=== PATIENT | female | born 1995 | race Caucasian/White ===

== ENCOUNTER 2017-11-10 22:05 | Emergency (ER) | payer OTHER ==
[~2017-11-10] VITALS: Ht 170.2 cm; Wt 56.7 kg
--- NOTE | ~2017-11-10 | OP ---
[address] [address] OPERATIVE REPORT Name: BARRINGTON CHIU Room: [facility]#: [id number] Admission: 11/10/17 Attend Phys: Discharge: 11/11/17 Date of : [birth year] Report #: [id number] THIS REPORT FOR: //name// Please see the post operative note. By: 0651Medical Records Staff WAQAR /CHITO
[~2017-11-10 22:05] MED LIST: ACETAMINOPHEN-1 EAC1 PO; CEPHALEXIN 500500 M3 PO; CIPROFLOXIN HC2.5 M1 OTIC
[2017-11-10 22:44] LABS: ABSOLUTE EOSINOPHILS 0.2 thou/uL (0.0-0.7); ABSOLUTE LYMPHOCYTES 4.2 thou/uL (0.8-5.3); ABSOLUTE MONOCYTES 0.5 thou/uL (0.0-1.2); BASOPHILS 0.4 %; EOSINOPHILS 1.6 %; HEMATOCRIT 29.6 % (37.0-47.0); LYMPHOCYTES 42.3 %; MCHC 33.8 g/dL (28.0-37.0); MCV 85.7 fL (80.0-100.0); MONOCYTES 5.5 %; MPV 7.4 fl. (7.2-11.1); NUCLEATED RBCS 0 /100WBC; PLATELET COUNT* 286 thou/uL (150-400); POLYS 50.2 %; RBC 3.45 mil/uL (4.20-5.00); RDW-CV 13.7 % (10.5-14.5); WBC 9.9 thou/uL (4.0-11.0)
[2017-11-10 22:51] LABS: CALCIUM 8.8 mg/dL (8.5-10.1); CREATININE 0.9 mg/dL (0.6-1.3); POTASSIUM 3.5 mmol/L (3.5-5.1)
[2017-11-10 22:53] LABS: INR 1.1; PROTIME 10.7 Seconds (9.20-11.50)
[2017-11-10 22:56] LABS: ALBUMIN 3.8 g/dL (3.4-5.0); TOTAL BILIRUBIN 0.3 mg/dL (<0.1-1.0)
[2017-11-11 01:47] LABS: URINE BILIRUBIN NEGATIVE (Negative); URINE BLOOD 3+ (Negative); URINE CLARITY SL CLOUDY; URINE COLOR RED; URINE GLUCOSE-RANDOM NEGATIVE (Negative); URINE KETONES NEGATIVE (Negative); URINE LEUKOCYTES NEGATIVE (Negative); URINE NITRITE NEGATIVE (Negative); URINE PROTEIN TRACE (Negative); URINE SPECIFIC GRAVITY 1.015 (1.005-1.030); URINE UROBILINOGEN 0.2 E.U./dl (0.2-1.0)
[2017-11-11 01:49] LABS: BACTERIA 1-9 Few /HPF (None Seen); CASTS None Seen /LPF (None Seen); CRYSTALS None Seen /LPF (None Seen); MUCUS 0-3 Light strn/LPF (None Seen); SQUAMOUS 0-3 Few /LPF (0-3); URINE RBC >20 Many /HPF (0-2); URINE WBC 0-5 Rare /HPF (0-5)
[2017-11-11 04:07] LABS: ABSOLUTE EOSINOPHILS 0.1 thou/uL (0.0-0.7); ABSOLUTE LYMPHOCYTES 2.9 thou/uL (0.8-5.3); ABSOLUTE MONOCYTES 0.5 thou/uL (0.0-1.2); ABSOLUTE NEUTROPHILS 4.4 thou/uL (1.6-8.1); BASOPHILS 0.5 %; EOSINOPHILS 1.8 %; HEMATOCRIT 25.2 % (37.0-47.0); HEMOGLOBIN 8.5 gm/dL (12.0-15.0); MCH 29.1 pg (26.0-34.0); MCHC 33.8 g/dL (28.0-37.0); MONOCYTES 6.6 %; MPV 7.2 fl. (7.2-11.1); NUCLEATED RBCS 0 /100WBC; PLATELET COUNT* 242 thou/uL (150-400); POLYS 55.1 %; RBC 2.94 mil/uL (4.20-5.00); RDW-CV 13.9 % (10.5-14.5)
[2017-11-11 04:46] VITALS: BP 102/49
--- NOTE | 2017-11-11 16:37 | EKG ---
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
--- NOTE | 2017-11-14 11:28 | S ---
[address] [address] SURGICAL PATH RPT PROCEDURE Name: BARRINGTON VALDOVINOS Room: [facility].#: [id number] Admission: 11/10/17 Date of : [birth year] Discharge: 11/11/17 Report #: [id number] Path Case #: [id number] PATHOLOGY REPORT COLLECTION DATE: 11/11/2017 RECEIVED DATE: 11/13/2017 SUBMITTING PHYS: Dr. Akhil Horn OTHER PHYS: Dr. Adilene Mcqueen SPECIMEN(S) RECEIVED: A.Products of conception * * * * * * * * * * * * FINAL DIAGNOSIS: Products of conception: - Chorionic villi and acutely inflamed and necrotic decidua/gestational endometrium. - Benign endocervical tissue with mild acute and chronic inflammation, negative for dysplasia. (STEFFANIE:[facility]; 11/14/2017) PATHOLOGIST: Ney Nguyen M.D. REPORT ELECTRONICALLY SIGNED BY: Ney Nguyen M.D. DATE/TIME: 11/14/2017 11:27 * * * * * * * * * * * * GROSS PATHOLOGY: Received in formalin labeled "Barrington Valdovinos, products of conception," is a 3.6 x 2.4 x 1.1 cm aggregate of spongiform, pale simon to dark brown tissue. tissue is not grossly evident. Vesicular structures are absent. The specimen is submitted entirely in cassettes A1 through A3. ([facility]; 11/13/2017) CLINICAL HISTORY: Pre-op diagnosis: Missed Post-op diagnosis: Incomplete INITIAL CPT CODE(S): A; 83109 Professional services performed by [facility] at [facility], [address] [place] [address] , [place] [address]. Technical services performed by [facility] at [address] [place] [address], [facility] [address] [address]. [place] [address] [address] [facility] [place] [address] SURGICAL PATH RPT PROCEDURE Name: BARRINGTON VALDOVINOS Room: [facility] CATHY Jackson#: [id number] Admission: 11/10/17 Date of : [birth year] Discharge: 11/11/17 Report #: [id number] Path Case #: [id number] [facility] [address] [address] PHONE: [phone] DIRECTOR: Jack Blum M.D. * * * END OF REPORT * * *
== END 2017-11-11 04:46 | disposition still patient (30) ==
LOC: M.SUR 22:05 → M.ERS 22:05 → M.SUR 11-11 04:46
PROVIDERS: Emergency Medicine; Physician Assistant
DX: O20.0 Threatened abortion (principal); Z3A.01 Less than 8 weeks gestation of pregnancy